=== PATIENT | male | born 1990 | race Caucasian/White ===

== ENCOUNTER 2019-01-24 13:37 | Emergency (ER) | payer SELFPAY ==
[~2019-01-24] VITALS: Ht 180.3 cm; Wt 74.8 kg
--- NOTE | 2019-01-24 14:12 | NUR ---
Patient eloped from facility. ER physician notified.
== END 2019-01-24 14:13 | disposition left against medical advice (07) ==
LOC: ER 13:41
DX: S60.812A Abrasion of left wrist, initial encounter (principal); B95.8 Unspecified staphylococcus as the cause of diseases classified elsewhere; Z59.0 Homelessness; W19.XXXA Unspecified fall, initial encounter; Y93.89 Activity, other specified; Y92.89 Other specified places as the place of occurrence of the external cause; Y99.8 Other external cause status
CPT/HCPCS: A4663